=== PATIENT | female | born 1995 | race Caucasian/White ===

== ENCOUNTER 2017-05-05 21:35 | Inpatient (IN) | payer OTHER ==
[2017-05-05] MEDS ORDERED: ONDANSETRON 4 MG INJ IV (23:30)
[2017-05-05] MEDS ORDERED: ACETAMINOPHEN 325 MG TAB PO (23:30)
[2017-05-05] MEDS ORDERED: NACL 0.9% 3 ML SYG IV (23:30)
[2017-05-05 23:47] LABS: ADD MAN DIFF? NO
[2017-05-05] MEDS: SOD CHLORIDE 0.9% 1,000 ML IV (23:49)
[2017-05-05 23:50] LABS: BASOPHILS % 0.2 % (0.0-2.0); EOSINOPHILS # 0.1 10^3/ul (0.0-0.5); EOSINOPHILS % 0.9 % (0.0-7.0); HEMATOCRIT 30.4 % (37.0-47.0); HEMOGLOBIN 9.9 g/dl (12.0-16.0); LYMPHOCYTES # 1.8 10^3/ul (0.8-2.9); LYMPHOCYTES % 21.7 % (15.0-51.0); MEAN CORPUSCULAR HEMOGLOBIN 26.5 pg (29.0-33.0); MEAN CORPUSCULAR HGB CONC 32.6 g/dl (32.0-37.0); MEAN CORPUSCULAR VOLUME 81.3 fl (82.0-101.0); MEAN PLATELET VOLUME 8.7 fl (7.4-10.4); MONOCYTE # 0.6 10^3/ul (0.3-0.9); MONOCYTES % 7.5 % (0.0-11.0); NEUTROPHIL # 5.6 10^3/ul (1.6-7.5); NEUTROPHILS % 69.3 % (39.0-77.0); PLATELET COUNT 272 10^3/UL (140-415); RED BLOOD COUNT 3.74 10^6/ul (4.20-5.40); RED CELL DISTRIBUTION WIDTH 13.4 % (11.5-14.5)
[2017-05-05 23:50] LABS: WHITE BLOOD COUNT 8.1 10^3/ul (4.8-10.8)
[2017-05-05] MEDS: morphine 2 MG INJ IV (23:50)
[2017-05-05] MEDS: metroNIDAZOLE 500 MG/NS (PMX) 100 ML IVPB (23:50)
[2017-05-06 00:09] LABS: ALANINE AMINOTRANSFERASE 28 IU/L (13-69); ALBUMIN 3.2 g/dl (3.3-4.9); ALBUMIN/GLOBULIN RATIO 1.23; ALKALINE PHOSPHATASE 55 IU/L (42-121); ANION GAP 14 (8-16); ASPARTATE AMINO TRANSFERASE 12 IU/L (15-46); BILIRUBIN,INDIRECT 0.5 mg/dl (0-1.1); BILIRUBIN,TOTAL 0.5 mg/dl (0.2-1.3); BLOOD UREA NITROGEN 6 mg/dl (7-20); CALCIUM 7.8 mg/dl (8.4-10.2); CARBON DIOXIDE 23 mmol/L (21-31); CHLORIDE 108 mmol/L (97-110); CHOL/HDL RATIO 1.9 RATIO; CHOLESTEROL 97 mg/dl (100-200); CREATININE 0.57 mg/dl (0.44-1.00); GLUCOSE 84 mg/dl (70-220); HDL CHOLESTEROL 49 mg/dl (33-83); LDL CHOLESTEROL,CALCULATED 37 mg/dl; MAGNESIUM 1.6 mg/dl (1.7-2.5); POTASSIUM 3.9 mmol/L (3.5-5.1); SODIUM 141 mmol/L (135-144); TOTAL PROTEIN 5.8 g/dl (6.1-8.1); TRIGLYCERIDES 54 mg/dl (0-149)
[2017-05-06 00:40] LABS: THYROID STIMULATING HORMONE 0.943 MIU/L (0.465-4.680)
[2017-05-06] MEDS: CIPROFLOXACIN 400MG/D5W 200 ML IVPB ×3 (01:34→21:30)
[2017-05-06 06:38] LABS: ADD MAN DIFF? NO
[2017-05-06 06:48] LABS: BASOPHILS % 0.3 % (0.0-2.0); EOSINOPHILS # 0.1 10^3/ul (0.0-0.5); EOSINOPHILS % 0.9 % (0.0-7.0); HEMATOCRIT 30.4 % (37.0-47.0); HEMOGLOBIN 9.9 g/dl (12.0-16.0); LYMPHOCYTES # 1.3 10^3/ul (0.8-2.9); LYMPHOCYTES % 16.8 % (15.0-51.0); MEAN CORPUSCULAR HEMOGLOBIN 26.3 pg (29.0-33.0); MEAN CORPUSCULAR HGB CONC 32.6 g/dl (32.0-37.0); MEAN CORPUSCULAR VOLUME 80.9 fl (82.0-101.0); MEAN PLATELET VOLUME 9.2 fl (7.4-10.4); MONOCYTE # 0.6 10^3/ul (0.3-0.9); MONOCYTES % 7.9 % (0.0-11.0); NEUTROPHIL # 5.7 10^3/ul (1.6-7.5); NEUTROPHILS % 73.7 % (39.0-77.0); PLATELET COUNT 268 10^3/UL (140-415); RED BLOOD COUNT 3.76 10^6/ul (4.20-5.40); RED CELL DISTRIBUTION WIDTH 13.5 % (11.5-14.5)
[2017-05-06 06:48] LABS: WHITE BLOOD COUNT 7.7 10^3/ul (4.8-10.8)
[2017-05-06] MEDS: metroNIDAZOLE 500 MG/NS (PMX) 100 ML IVPB ×3 (06:50→22:48)
[2017-05-06] MEDS: morphine 2 MG INJ IV (06:58)
[2017-05-06 07:27] LABS: ANION GAP 11 (8-16); BLOOD UREA NITROGEN 5 mg/dl (7-20); CALCIUM 7.7 mg/dl (8.4-10.2); CARBON DIOXIDE 24 mmol/L (21-31); CHLORIDE 109 mmol/L (97-110); CREATININE 0.56 mg/dl (0.44-1.00); GLUCOSE 83 mg/dl (70-220); POTASSIUM 3.9 mmol/L (3.5-5.1); SODIUM 140 mmol/L (135-144)
[2017-05-06] MEDS: SOD CHLORIDE 0.9% 1,000 ML IV ×3 (09:14→15:25)
[2017-05-07] MEDS: SOD CHLORIDE 0.9% 1,000 ML IV (04:37)
[2017-05-07] MEDS: metroNIDAZOLE 500 MG/NS (PMX) 100 ML IVPB ×2 (05:56→13:27)
[2017-05-07 06:43] LABS: ADD MAN DIFF? NO
[2017-05-07 06:48] LABS: WHITE BLOOD COUNT 6.8 10^3/ul (4.8-10.8)
[2017-05-07 06:48] LABS: BASOPHILS % 0.3 % (0.0-2.0); EOSINOPHILS # 0.1 10^3/ul (0.0-0.5); EOSINOPHILS % 1.5 % (0.0-7.0); HEMATOCRIT 29.1 % (37.0-47.0); HEMOGLOBIN 9.6 g/dl (12.0-16.0); LYMPHOCYTES % 28.8 % (15.0-51.0); MEAN CORPUSCULAR HEMOGLOBIN 26.7 pg (29.0-33.0); MEAN CORPUSCULAR VOLUME 81.1 fl (82.0-101.0); MEAN PLATELET VOLUME 9.3 fl (7.4-10.4); MONOCYTE # 0.5 10^3/ul (0.3-0.9); MONOCYTES % 7.9 % (0.0-11.0); NEUTROPHIL # 4.2 10^3/ul (1.6-7.5); NEUTROPHILS % 61.2 % (39.0-77.0); PLATELET COUNT 277 10^3/UL (140-415); RED BLOOD COUNT 3.59 10^6/ul (4.20-5.40); RED CELL DISTRIBUTION WIDTH 13.3 % (11.5-14.5)
[2017-05-07 07:09] LABS: ANION GAP 13 (8-16); BLOOD UREA NITROGEN 3 mg/dl (7-20); CALCIUM 8.3 mg/dl (8.4-10.2); CARBON DIOXIDE 25 mmol/L (21-31); CHLORIDE 109 mmol/L (97-110); CREATININE 0.55 mg/dl (0.44-1.00); GLUCOSE 75 mg/dl (70-220); POTASSIUM 4.1 mmol/L (3.5-5.1); SODIUM 143 mmol/L (135-144)
[2017-05-07 07:10] LABS: MAGNESIUM 1.9 mg/dl (1.7-2.5)
[2017-05-07 07:10] LABS: PHOSPHORUS 3.3 mg/dl (2.5-4.9)
[2017-05-07] MEDS: CIPROFLOXACIN 400MG/D5W 200 ML IVPB (08:22)
[2017-05-07] MEDS: CIPROFLOXACIN 500 MG TAB PO (19:31)
[2017-05-07] MEDS: LORAZEPAM 0.5 MG TAB PO (21:09)
[2017-05-07] MEDS: metroNIDAZOLE 500 MG TAB PO (21:09)
[2017-05-08 05:51] LABS: ADD MAN DIFF? NO
[2017-05-08 06:04] LABS: WHITE BLOOD COUNT 7.4 10^3/ul (4.8-10.8)
[2017-05-08 06:04] LABS: BASOPHILS % 0.4 % (0.0-2.0); EOSINOPHILS # 0.1 10^3/ul (0.0-0.5); EOSINOPHILS % 1.9 % (0.0-7.0); HEMATOCRIT 32.9 % (37.0-47.0); HEMOGLOBIN 10.8 g/dl (12.0-16.0); LYMPHOCYTES # 2.2 10^3/ul (0.8-2.9); LYMPHOCYTES % 29.4 % (15.0-51.0); MEAN CORPUSCULAR HEMOGLOBIN 26.6 pg (29.0-33.0); MEAN CORPUSCULAR HGB CONC 32.8 g/dl (32.0-37.0); MONOCYTE # 0.6 10^3/ul (0.3-0.9); MONOCYTES % 7.5 % (0.0-11.0); NEUTROPHIL # 4.5 10^3/ul (1.6-7.5); NEUTROPHILS % 60.5 % (39.0-77.0); PLATELET COUNT 332 10^3/UL (140-415); RED BLOOD COUNT 4.06 10^6/ul (4.20-5.40); RED CELL DISTRIBUTION WIDTH 13.2 % (11.5-14.5)
[2017-05-08] MEDS: metroNIDAZOLE 500 MG TAB PO (06:06)
[2017-05-08] MEDS: CIPROFLOXACIN 500 MG TAB PO (06:06)
[2017-05-08 06:20] LABS: ANION GAP 13 (8-16); BLOOD UREA NITROGEN 7 mg/dl (7-20); CALCIUM 8.5 mg/dl (8.4-10.2); CARBON DIOXIDE 24 mmol/L (21-31); CHLORIDE 107 mmol/L (97-110); CREATININE 0.56 mg/dl (0.44-1.00); GLUCOSE 89 mg/dl (70-220); POTASSIUM 3.9 mmol/L (3.5-5.1); SODIUM 140 mmol/L (135-144)
== END 2017-05-08 12:30 | disposition home or self-care (01) | DRG 392 ==
LOC: PP2 21:35
DX: K57.32 Diverticulitis of large intestine without perforation or abscess without bleeding (principal); E66.9 Obesity, unspecified; Z68.38 Body mass index [BMI] 38.0-38.9, adult; F17.210 Nicotine dependence, cigarettes, uncomplicated
CPT/HCPCS: 80048; 80053; 80061; 83036; 83735; 84100; 84443; 85025

== ENCOUNTER 2018-08-18 00:33 | Emergency (ER) | payer OTHER ==
[2018-08-18] MEDS: HYDROCODONE/APAP (10/325) TAB PO (02:01)
[2018-08-18] MEDS: KETOROLAC 30 MG INJ IM (02:44)
== END 2018-08-18 05:26 | disposition home or self-care (01) ==
LOC: FTE 00:33
DX: S30.0XXA Contusion of lower back and pelvis, initial encounter (principal); F17.210 Nicotine dependence, cigarettes, uncomplicated; M62.830 Muscle spasm of back; V43.62XA Car passenger injured in collision with other type car in traffic accident, initial encounter
CPT/HCPCS: 71046; 72040; 72100; 84703; 96372; 99284-25